=== PATIENT | female | born 1955 | race Two or more races ===

== ENCOUNTER 2017-03-18 08:01 | Emergency (ER) | payer BC ==
[2017-03-18] MEDS ORDERED: NORMAL SALINE 1000 ML 1,000 ML IV ONE (08:27)
[2017-03-18] MEDS ORDERED: ONDANSETRON HCL INJ/PF 4 MG/2 ML SDV IV ONE (08:27)
[2017-03-18] MEDS ORDERED: FAMOTIDINE INJ/PF 20 MG/2 ML SDV IV ONE (08:27)
[2017-03-18 08:47] LABS: ABSOLUTE EOSINOPHILS # (AUTO) 0.1 10^3/uL (0.0-0.6); ABSOLUTE LYMPHOCYTES (AUTO) 2.3 10^3/uL (0.5-4.7); ABSOLUTE MONOCYTES (AUTO) 0.5 10^3/uL (0.1-1.4); ABSOLUTE NEUT (AUTO) 5.5 10^3/uL (1.7-8.2); BASOPHILS % (AUTO) 0.5 % (0-2); EOSINOPHILS % (AUTO) 1.3 % (0-6); HEMOGLOBIN 14.7 g/dL (12.0-15.5); HGB HCT DIFFERENCE 0.1; MEAN CORPUSCULAR HEMOGLOBIN 27.4 pg (27.0-33.4); MEAN CORPUSCULAR HGB CONC 33.3 g/dL (32.0-36.0); MEAN CORPUSCULAR VOLUME 82 fl (80-97); RED BLOOD COUNT 5.36 10^6/uL (3.72-5.28); RED CELL DISTRIBUTION WIDTH 14.5 % (11.5-14.0); SEGMENTED NEUTROPHILS % (AUTO) 65.2 % (42-78); WHITE BLOOD COUNT 8.4 10^3/uL (4.0-10.5)
[2017-03-18 09:03] LABS: ALANINE AMINOTRANSFERASE 33 U/L (9-52); ALBUMIN 4.3 g/dL (3.5-5.0); ALKALINE PHOSPHATASE 92 U/L (38-126); ANION GAP 15 (5-19); ASPARTATE AMINO TRANSFERASE 16 U/L (14-36); BILIRUBIN,DIRECT 0.3 mg/dL (0.0-0.4); BILIRUBIN,TOTAL 0.6 mg/dL (0.2-1.3); BLOOD UREA NITROGEN 16 mg/dL (7-20); CALCIUM 8.9 mg/dL (8.4-10.2); CARBON DIOXIDE 20 mmol/L (22-30); CHLORIDE 104 mmol/L (98-107); CREATININE RESULT 0.56 mg/dL (0.52-1.25); GLUCOSE 123 mg/dL (75-110); LIPASE 64.8 U/L (23-300); POTASSIUM 3.8 mmol/L (3.6-5.0); SODIUM 139.1 mmol/L (137-145); TOTAL PROTEIN 6.6 g/dL (6.3-8.2)
--- NOTE | 2017-03-18 09:16 | ER Document Report ---
ED GI/ - General Chief Complaint: Abdominal Pain Stated Complaint: PAIN IN STOMACH VOMITING Time Seen by Provider: 03/18/17 08:26 Notes: The patient is a 62-year-old female who presents with 2 hours of nausea, vomiting and epigastric pain. She works in the [employer]. She denies diarrhea , urinary symptoms, fevers, chest pain, shortness of breath, hematemesis, flank pain or headache. TRAVEL OUTSIDE OF THE [place] IN LAST 30 DAYS: No Past Medical History - General Information source: Patient - Social History Smoking Status: Current Every Day Smoker Chew tobacco use (# tins/day): No Frequency of alcohol use: None Drug Abuse: None Family History: Reviewed & Not Pertinent Patient has suicidal ideation: No Patient has homicidal ideation: No Renal/ Medical History: Denies: Hx Peritoneal Dialysis Review of Systems - Review of Systems Notes: REVIEW OF SYSTEMS: CONSTITUTIONAL: -fevers, -chills EENT: -eye pain, -difficulty swallowing, -nasal congestion CARDIOVASCULAR:-chest pain, -syncope. RESPIRATORY: -cough, -SOB GASTROINTESTINAL: +epigastric abdominal pain, +nausea, +vomiting, -diarrhea GENITOURINARY: -dysuria, -hematuria MUSCULOSKELETAL: -back pain, -neck pain SKIN: -rash or skin lesions. HEMATOLOGIC: -easy bruising or bleeding. LYMPHATIC: -swollen, enlarged glands. NEUROLOGICAL: -altered mental status or loss of consciousness, -headache, - neurologic symptoms PSYCHIATRIC: -anxiety, -depression. ALL OTHER SYSTEMS REVIEWED AND NEGATIVE. Physical Exam - Vital signs Vitals: Temp Pulse Resp BP Pulse Ox 98.0 F 54 L 16 128/79 H 98 03/18/17 08:04 03/18/17 08:04 03/18/17 08:04 03/18/17 08:04 03/18/17 08:04 - Notes Notes: PHYSICAL EXAMINATION: GENERAL: Well-appearing, well-nourished and in no acute distress. HEAD: Atraumatic, normocephalic. EYES: Pupils equal round and reactive to light, extraocular movements intact, sclera anicteric, conjunctiva are normal. ENT: nares patent, oropharynx clear without exudates. Moist mucous membranes. NECK: Normal range of motion, supple without lymphadenopathy LUNGS: Breath sounds clear to auscultation bilaterally and equal. No wheezes rales or rhonchi. HEART: Regular rate and rhythm without murmurs ABDOMEN: Soft, mild epigastric tenderness, normoactive bowel sounds. No guarding, no rebound. No masses appreciated. EXTREMITIES: Normal range of motion, no pitting or edema. No cyanosis. NEUROLOGICAL: Cranial nerves grossly intact. Normal speech, normal gait. Normal sensory and motor exams. PSYCH: Normal mood, normal affect. SKIN: Warm, Dry, normal turgor, no rashes or lesions noted. Course - Re-evaluation Re-evalutation: Patient appears well. Blood work is unremarkable and she feels much better after antiemetics, fluids, Pepcid and GI cocktail. Suspect a component of gastritis and will send home with instructions to begin PPIs and use Zofran for any nausea. She will follow with her primary care physician. - Vital Signs Vital signs: Temp Pulse Resp BP Pulse Ox 98.7 F 64 18 146/86 H 96 03/18/17 11:16 03/18/17 11:16 03/18/17 11:16 03/18/17 11:16 03/18/17 11:16 - Laboratory Result Diagrams: 03/18/17 08:35 03/18/17 08:35 Laboratory results interpreted by me: 03/18/17 03/18/17 03/18/17 08:35 08:35 09:31 RBC 5.36 H RDW 14.5 H Carbon Dioxide 20 L Glucose 123 H Urine Protein 30 H Urine Blood LARGE H Discharge - Discharge Clinical Impression: Epigastric abdominal pain Nausea & vomiting Qualifiers: Vomiting type: unspecified Vomiting Intractability: non-intractable Qualified Code(s): R11.2 - Nausea with vomiting, unspecified Condition: Stable Disposition: HOME, SELF-CARE Additional Instructions: ABDOMINAL PAIN: There are many causes of abdominal pain. Pain can mean a serious problem requiring surgery (such as appendicitis). It can also be an innocent problem that goes away on its own (such as a viral infection). Often, time must pass to determine the cause of pain. The physician does not feel that hospitalization is necessary, at present. Things may change within the next 24 hours. Call the doctor or come back for re- examination if any problems occur, such as: (1) Pain that becomes more severe, steady, or becomes concentrated in one specific area. Also, pain that is more severe with movement or coughing. (2) Vomiting that persists or becomes more frequent. (3) Blood in the vomitus, urine, or bowel movements. Blood in the stool may have a tarry or black appearance. (4) Shaking chills or fever greater than 100 degrees F. (5) The abdomen becomes more distended or swollen. (6) Bowel movements cease. (7) Failure to improve as expected. NORMAL EXAM AND WORKUP: At this time, your examination and workup show no significant abnormality. No significant abnormal physical findings are noted. All laboratory, EKG, and imaging (x-ray, CT scans, ultrasound) studies that were ordered show no significant abnormality. Although your examination and all studies that were ordered showed no significant abnormal finding, there are no examinations and no studies that are 100% accurate. There is always the possibility that some abnormality could exist and not be detected with physical examination or within the limits and capabilities of laboratory and other studies. You should return or follow up as you were instructed on your visit today for further evaluation if your symptoms do not resolve. ANTINAUSEA MEDICATION: You have been given a medication to suppress nausea and vomiting. This type of medication can be given as a shot, pill, or suppository. It will usually last for many hours. Pills and shots usually last six to eight hours, suppositories last about 12 hours. For the typical illness, only one or two doses of the medication may be necessary. Mild lightheadedness may occur. This type of medicine can cause drowsiness. Do not drive or operate dangerous machinery while under its influence. Do not mix with alcohol. See your doctor at once if you have muscle spasms or tightness, or uncontrollable motions (particularly of the neck, mouth, or jaw). Persistent vomiting or severe lightheadedness should also be evaluated by the physician. FOLLOW-UP CARE: If you have been referred to a physician for follow-up care, call the physician s office for an appointment as you were instructed or within the next two days. If you experience worsening or a significant change in your symptoms, notify the physician immediately or return to the Emergency Department at any time for re-evaluation. FOLLOW-UP CARE: You should return for re-evaluation in 12 hours. This follow-up visit is important. If you are unable to return, or feel that the return visit is unnecessary, please call us. Prescriptions: Ondansetron [Zofran Odt 4 mg Tablet] 1 - 2 tab PO Q4H PRN #15 tab.rapdis PRN Reason: For Nausea/Vomiting Referrals: ROSAS RODRIGUEZ MD [ACTIVE STAFF] - Follow up as needed
[2017-03-18 09:54] LABS: APPEARANCE,URINE CLEAR; BILIRUBIN,URINE NEGATIVE (NEGATIVE); GLUCOSE, URINE NEGATIVE (NEGATIVE); KETONES,URINE NEGATIVE (NEGATIVE); LEUKOCYTE ESTERASE,URINE NEGATIVE (NEGATIVE); NITRITE,URINE NEGATIVE (NEGATIVE); PROTEIN,URINE 30 mg/dL (NEGATIVE); URINE SPECIFIC GRAVITY 1.016; UROBILINOGEN,URINE NEGATIVE mg/dL (<2.0)
[2017-03-18] MEDS ORDERED: MAG HYDROX/AL HYDROX/SIMETH SUSP 30 ML UDCUP PO ONE (10:04)
[2017-03-18] MEDS ORDERED: METOCLOPRAMIDE HCL ORAL SOLN 10 MG/10 ML UDCUP PO ONE (10:04)
[2017-03-18] MEDS ORDERED: LIDOCAINE 2% VISCOUS SOLN 20 ML UDCUP PO ONE (10:04)
[2017-03-18 11:17] VITALS: BP 146/86
== END 2017-03-18 11:17 | disposition home or self-care (01) ==
LOC: ER 08:01
DX: R10.13 Epigastric pain (principal); R11.2 Nausea with vomiting, unspecified; F17.200 Nicotine dependence, unspecified, uncomplicated
CPT/HCPCS: 99284; 96361; 96374; 96375; 36415; 83690; 85025; 80053; 81001; J3490; J2405; J7030; S0028

== ENCOUNTER → 2017-03-25 | Outpatient (CLI) | payer BC ==
--- NOTE | 2017-03-25 10:19 | WOMENS IMAGING REPORT ---
EXAM DESCRIPTION: EMPLOYEE; U/S ABDOMEN LIMITED COMPLETED DATE/TIME: 03/25/2017 8:47 am REASON FOR STUDY: RIGHT UPPER QUADRANT PAIN R10.811 RIGHT UPPER QUADRANT ABDOMINAL TENDERNESS R11.2 NAUSEA WITH VOMITING, UNSPECIFIED COMPARISON: None. TECHNIQUE: Dynamic and static grayscale images acquired of the abdomen and recorded on PACS. Additio nal selected color Doppler and spectral images recorded. LIMITATIONS: None. FINDINGS: PANCREAS: No masses. Visualized pancreatic duct normal caliber. LIVER: No masses. Echotexture normal. LIVER VASCULATURE: Normal directional flow of the main portal vein and hepatic veins. GALLBLADDER: No stones. Normal wall thickness. No pericholecystic fluid. ULTRASOUND-DETECTED GUY'S SIGN: Negative. INTRAHEPATIC DUCTS AND COMMON DUCT: CBD and intrahepatic ducts normal caliber. No filling defects. INFERIOR VENA CAVA: Normal flow. AORTA: No aneurysm. RIGHT KIDNEY: Normal size. Normal echogenicity. No solid or suspicious masses. No hydronephrosis. No calcifications. PERITONEAL AND RIGHT PLEURAL SPACE: No ascites or effusions. OTHER: No other significant findings. IMPRESSION: NORMAL RIGHT UPPER QUADRANT ULTRASOUND. TECHNICAL DOCUMENTATION: JOB ID: [id number] [employer]- All Rights Reserved
== END ==
LOC: WI 07:41
PROVIDERS: ATTEND Internal Medicine Gastroenterology
DX: R10.811 Right upper quadrant abdominal tenderness (principal); R11.2 Nausea with vomiting, unspecified
CPT/HCPCS: 76705

== ENCOUNTER 2017-04-09 15:07 | Day surgery (SDC) | payer BC ==
[~2017-04-09 15:07] MED LIST: EPINEPHRINE INJ 1 MG/10 ML DISP.SYRIN ONE; FLUMAZENIL INJ 0.5 MG/5 ML VIAL ONE; GLUCAGON,HUMAN RECOMB 1 MG INJ ONE; NALOXONE HCL INJ/PF 0.4 MG/1 ML SDV ONE
[2017-04-09] MEDS: MIDAZOLAM 2 MG/2 ML INJ ONE ×3 (15:42→15:54)
[2017-04-09] MEDS: FENTANYL CITRATE INJ/PF 100 MCG/2 ML AMPUL ONE ×2 (15:44→15:48)
--- NOTE | 2017-04-09 16:15 | Operative Report ---
Operative Report DATE OF SURGERY: 04/09/17 Operative Report: Pre-op diagnosis: Colon cancer screening Post-op diagnosis: 1. Polyps in the cecum and sigmoid colon Surgery: Colonoscopy with polypectomy Medications: Versed 4mg, Fentanyl 100mcg IV push Tissue removed: Colon polyps Procedure: After informed consent obtained from patient, conscious sedation was achieved. A digital rectal examination was performed and this was unremarkable. The colonoscope was inserted into the rectum and advanced to the cecum. The appendiceal orifice and the terminal ileum were both identified. The mucosa was examined into details as the colonoscope was slowly pulled out of the patient. The endoscope was retroflexed in the rectum. Patient tolerated the procedure well. Findings Terminal ileum: Normal Cecum: 9 mm pedunculated polyp noted at the appendiceal orifice. This was removed with a hot snare Ascending colon: Normal Transverse colon: Normal Descending colon: Normal Sigmoid colon: 5 mm and 9 mm polyps removed with a hot snare Rectum: Normal except for internal hemorrhoids Plan: Await pathology. Follow-up colonoscopy in 3 years OPERATION: .
[2017-04-09 17:05] VITALS: BP 142/81
== END 2017-04-09 17:15 | disposition home or self-care (01) ==
LOC: END 15:07
PROVIDERS: ATTEND Internal Medicine Gastroenterology
PROC: 0DBH8ZX Excision of Cecum, Via Natural or Artificial Opening Endoscopic, Diagnostic (ICD-10-PCS; 2017-04-09)
PROC: 0DBN8ZX Excision of Sigmoid Colon, Via Natural or Artificial Opening Endoscopic, Diagnostic (ICD-10-PCS; principal; 2017-04-09 15:45)
DX: Z12.11 Encounter for screening for malignant neoplasm of colon (principal); D12.0 Benign neoplasm of cecum; D12.5 Benign neoplasm of sigmoid colon; K64.8 Other hemorrhoids; F17.210 Nicotine dependence, cigarettes, uncomplicated; Z79.899 Other long term (current) drug therapy
CPT/HCPCS: 45385; 88305 ×2; J2250; J3010; J0171; J1610; J2310; J3490

== ENCOUNTER 2017-05-07 15:24 | Day surgery (SDC) | payer BC ==
[2017-05-07] MEDS ORDERED: NALOXONE HCL INJ/PF 0.4 MG/1 ML SDV ONE (16:37)
[2017-05-07] MEDS ORDERED: FENTANYL CITRATE INJ/PF 100 MCG/2 ML AMPUL ONE (16:37)
[2017-05-07] MEDS ORDERED: FLUMAZENIL INJ 0.5 MG/5 ML VIAL ONE (16:38)
[2017-05-07] MEDS ORDERED: EPINEPHRINE INJ 1 MG/10 ML DISP.SYRIN ONE (16:38)
[2017-05-07] MEDS ORDERED: GLUCAGON,HUMAN RECOMB 1 MG INJ ONE (16:38)
[2017-05-07] MEDS: MIDAZOLAM 2 MG/2 ML INJ ONE ×2 (17:30→17:36)
--- NOTE | 2017-05-07 17:48 | Operative Report ---
Operative Report DATE OF SURGERY: 05/07/17 Operative Report: Pre-op diagnosis: Abdominal pain and vomiting Post-op diagnosis: Antral gastritis Surgery: Esophagogastroduodenoscopy with biopsy Medications: Versed 3mg Fentanyl 100mcg IV push Tissue removed: Antral biopsy for pathology Procedure: After informed consent obtained from patient, the throat was sprayed with Hurricane and conscious sedation was achieved. The upper endoscope was inserted into the esophagus under direct vision and advanced into the stomach. The duodenum was entered and examined to the second part. Endoscope was then slowly pulled out of the patient as the mucosa was examined into details. Patient tolerated procedure well. Findings Esophagus: Normal Z-line at: 38 cm Antrum: Mild erythema. Body: Normal Fundus: Normal Duodenum first part: Normal Duodenum second part: Normal Plan: Await pathology. Omeprazole 20 mg daily for 6-8 weeks OPERATION: .
[2017-05-07 18:30] VITALS: BP 144/88
== END 2017-05-07 18:35 | disposition home or self-care (01) ==
LOC: END 15:24
PROVIDERS: ATTEND Internal Medicine Gastroenterology
PROC: 0DB68ZX Excision of Stomach, Via Natural or Artificial Opening Endoscopic, Diagnostic (ICD-10-PCS; principal; 2017-05-07 16:00)
DX: K31.9 Disease of stomach and duodenum, unspecified (principal)
CPT/HCPCS: 43239; 88342 ×2; 88305 ×2; J2250; J3010; J0171; J1610; J2310; J3490

== ENCOUNTER 2018-03-28 23:59 | Emergency (ER) | payer BC ==
[2018-03-29] MEDS ORDERED: OXYMETAZOLINE HCL 0.05% NASAL SPRAY 15 ML BOTTLE ONE (00:49)
[2018-03-29] MEDS ORDERED: OXYMETAZOLINE HCL 0.05% NASAL SPRAY 15 ML BOTTLE NASL ONE (00:54)
--- NOTE | 2018-03-29 01:00 | ER Document Report ---
ED General - General Chief Complaint: Nose Bleed Stated Complaint: NOSE PROBLEM Time Seen by Provider: 03/29/18 00:24 Notes: Patient is a 63-year-old female with a past medical history of hypertension who presents with a nosebleed that has been ongoing for the past 1 hour. Patient reports that this woke her from sleep and that she has been bleeding continuously from the left nostril. She has applied trying intermittent direct pressure without success of stopping the bleeding. No history of similar symptoms in the past. She does not take any form of anticoagulation. She has not seen her primary care doctor regarding today's concerns. She denies any syncope, vomiting or difficulty breathing. No facial trauma. Nothing seems to worsen her symptoms. TRAVEL OUTSIDE OF THE [place] IN LAST 30 DAYS: No - Related Data Allergies/Adverse Reactions: No Known Allergies Allergy (Verified 05/07/17 15:31) Past Medical History - General Information source: Patient - Social History Smoking Status: Current Every Day Smoker Frequency of alcohol use: None Drug Abuse: None Lives with: Spouse/Significant other Family History: Reviewed & Not Pertinent Patient has suicidal ideation: No Patient has homicidal ideation: No - Past Medical History Cardiac Medical History: Denies: Hx Coronary Artery Disease, Hx Heart Attack, Hx Hypertension Pulmonary Medical History: Denies: Hx Asthma, Hx Bronchitis, Hx COPD, Hx Pneumonia Neurological Medical History: Denies: Hx Cerebrovascular Accident, Hx Seizures Renal/ Medical History: Denies: Hx Peritoneal Dialysis Musculoskeletal Medical History: Denies Hx Arthritis Past Surgical History: Reports: Hx Section - x3. Denies: Hx Hysterectomy - Immunizations Hx Diphtheria, Pertussis, Tetanus Vaccination: Yes Review of Systems - Review of Systems Notes: Constitutional: Negative for fever. HENT: Positive for nosebleed Eyes: Negative for visual changes. Cardiovascular: Negative for chest pain. Respiratory: Negative for shortness of breath. Gastrointestinal: Negative for abdominal pain, vomiting or diarrhea. Genitourinary: Negative for dysuria. Musculoskeletal: Negative for back pain. Skin: Negative for rash. Neurological: Negative for headaches, weakness or numbness. 10 point ROS negative except as marked above and in HPI. Physical Exam - Vital signs Vitals: Temp Pulse Resp BP Pulse Ox 98.4 F 70 14 178/90 H 97 03/29/18 00:08 03/29/18 00:08 03/29/18 00:08 03/29/18 00:08 03/29/18 00:08 Interpretation: Hypertensive Notes: PHYSICAL EXAMINATION: GENERAL: Appears moderately uncomfortable but in no acute distress HEAD: Atraumatic, normocephalic. EYES: Pupils equal round and reactive to light, extraocular movements intact, sclera anicteric, conjunctiva are normal. ENT: Scant bleeding from the left nostril that appears to be coming from the mid septum, no bleeding from the right nostril. NECK: Normal range of motion, supple without lymphadenopathy LUNGS: Breath sounds clear to auscultation bilaterally and equal. No wheezes rales or rhonchi. HEART: Regular rate and rhythm without murmurs ABDOMEN: Soft, nontender, normoactive bowel sounds. No guarding, no rebound. No masses appreciated. EXTREMITIES: Normal range of motion, no pitting or edema. No cyanosis. NEUROLOGICAL: No focal neurological deficits. Moves all extremities spontaneously and on command. PSYCH: Normal mood, normal affect. SKIN: Warm, Dry, normal turgor, no rashes or lesions noted. Course - Re-evaluation Re-evalutation: 03/29/18 01:00 Patient presents with very mild bleeding from her left nostril. Oxymetazoline was instilled into the nostril and direct pressure was applied. This did result in termination of the bleeding patient will be monitored for 1 hour to ensure that the bleeding does not restart. No indication for labs or imaging at this point. 03/29/18 02:29 The patient has not had any recurrence of bleeding for over 1.5 hours. At this time will discharge with return precautions and follow-up recommendations. Verbal discharge instructions given a the bedside and opportunity for questions given. Medication warnings reviewed. Patient is in agreement with this plan and has verbalized understanding of return precautions and the need for primary care follow-up in the next 24-72 hours. - Vital Signs Vital signs: Temp Pulse Resp BP Pulse Ox 97.7 F 55 L 16 158/99 H 97 03/29/18 02:24 03/29/18 02:24 03/29/18 02:24 03/29/18 02:24 03/29/18 02:24 Discharge - Discharge Clinical Impression: Anterior epistaxis Condition: Good Disposition: HOME, SELF-CARE Additional Instructions: You were seen today for a nosebleed. If this restarts please apply direct pressure to the area for 15 minutes without releasing pressure. You can use 4- 5 sprays the Afrin (oxymetazoline) spray that was given to you here in the emergency room into the affected side prior to applying the pressure. You need to apply vasaline or a similar product along the inside of the side of the nose that is bleeding twice daily to help heal the inside of your nose. Please return to emergency department if these measures do not control the bleeding. Please also return if you pass out, have significant pain of the nose or face, or any other symptoms that are concerning to you. Your primary care doctor regarding today's visit.it. Forms: Return to Work
[2018-03-29 02:26] VITALS: BP 158/99
== END 2018-03-29 02:30 | disposition home or self-care (01) ==
LOC: ER 23:59
DX: R04.0 Epistaxis (principal); F17.200 Nicotine dependence, unspecified, uncomplicated
CPT/HCPCS: 99283

== ENCOUNTER → 2020-04-20 | Outpatient (CLI) | payer BC ==
[~2020-04-20] MED LIST changes: +COVID-19 VACCINE (PFIZER)/PF 30 MCG/0.3 ML VIAL IM ONE; -EPINEPHRINE INJ 1 MG/10 ML DISP.SYRIN ONE; +EPINEPHRINE INJ/PF 1 MG/1 ML AMPULE IM PRN; -FLUMAZENIL INJ 0.5 MG/5 ML VIAL ONE; -GLUCAGON,HUMAN RECOMB 1 MG INJ ONE; -NALOXONE HCL INJ/PF 0.4 MG/1 ML SDV ONE
== END ==
LOC: EMPHEALTH 09:40
PROVIDERS: ATTEND Internal Medicine
DX: Z23 Encounter for immunization (principal)
CPT/HCPCS: 91300

== ENCOUNTER → 2020-05-11 | Outpatient (CLI) | payer BC | LOC: EMPHEALTH 09:41 | PROVIDERS: ATTEND Internal Medicine | DX: Z23 Encounter for immunization (principal) | CPT/HCPCS: 91300 ==